=== PATIENT | female | born 1935 | race African-American/Black ===

== ENCOUNTER 2018-08-10 10:55 | Emergency (ER) | payer OTHER ==
[~2018-08-10] VITALS: Ht 154.9 cm; Wt 85.7 kg
[~2018-08-10 10:55] MED LIST: ASA81 MG PO; AZITHROMYCIN1 G/PKT PO; CARDURA8 MG PO; CEFTRIAXONE IM; COZAAR100 MG PO; GLUCOPHAGE XR500 MG PO; VERAPAMIL ER200 MG PO; [UNRECOGNIZED DRUG - OTHER]; [UNRECOGNIZED DRUG - OTHER] IM
[2018-08-10] MEDS ORDERED: GLIPIZIDE ER2.5 MG PO (11:13)
[2018-08-10] MEDS ORDERED: VERAPAMIL ER240 MG (11:13)
[2018-08-10] MEDS ORDERED: HYDROCHLOROTH12.5 M1 PO (11:13)
[2018-08-10] MEDS ORDERED: ATORVASTATIN CA10 MG PO (11:13)
[2018-08-10] MEDS ORDERED: AVAPRO300 MG PO (11:14)
[2018-08-10] MEDS ORDERED: ELIQUIS5 MG PO (11:14)
[2018-08-10] MEDS ORDERED: PERCOCET 5-3251 EACH PO (13:16)
== END 2018-08-10 14:03 | disposition home or self-care (01) ==
LOC: ER 10:55
DX: G89.29 Other chronic pain (principal); M54.5 Low back pain

== ENCOUNTER 2018-12-21 07:15 | Outpatient (CLI) | payer OTHER ==
[~2018-12-21 07:15] MED LIST changes: +ATORVASTATIN CA10 MG PO; +AVAPRO300 MG PO; +ELIQUIS5 MG PO; +GLIPIZIDE ER2.5 MG PO; +HYDROCHLOROTH12.5 M1 PO; +PERCOCET 5-3251 EACH PO; +VERAPAMIL ER240 MG
== END 2018-12-21 13:55 | disposition home or self-care (01) ==
LOC: LAB 07:15
DX: M47.26 Other spondylosis with radiculopathy, lumbar region (principal); Z01.818 Encounter for other preprocedural examination

== ENCOUNTER 2018-12-22 05:47 | Day surgery (SDC) | payer OTHER | END 2018-12-22 10:50 | disposition home or self-care (01) | LOC: CIR.AMB 05:47 | DX: M47.26 Other spondylosis with radiculopathy, lumbar region (principal) ==

== ENCOUNTER 2019-01-24 07:15 | Outpatient (CLI) | payer OTHER ==
[2019-01-30] MEDS ORDERED: PLAVIX75 MG PO (08:49)
[2019-01-30] MEDS ORDERED: CYMBALTA20 MG PO (08:49)
[2019-01-30] MEDS ORDERED: ASA81 MG PO (08:50)
[2019-01-30] MEDS ORDERED: COZAAR25 MG PO (08:50)
[2019-01-30] MEDS ORDERED: APRESOLINE 10MG10 MG PO (08:50)
[2019-01-30] MEDS ORDERED: LYRICA50 MG PO (08:50)
== END 2019-01-24 07:47 | disposition home or self-care (01) ==
LOC: LAB 07:15
DX: M48.061 Spinal stenosis, lumbar region without neurogenic claudication (principal); Z01.818 Encounter for other preprocedural examination; Z01.810 Encounter for preprocedural cardiovascular examination; I10 Essential (primary) hypertension; Z01.811 Encounter for preprocedural respiratory examination

== ENCOUNTER 2019-02-02 05:46 | Day surgery (SDC) | payer OTHER ==
[~2019-02-02 05:46] MED LIST changes: +APRESOLINE 10MG10 MG PO; +COZAAR25 MG PO; +CYMBALTA20 MG PO; +LYRICA50 MG PO; +PLAVIX75 MG PO
== END 2019-02-02 13:15 | disposition home or self-care (01) ==
LOC: CIR.AMB 05:46
DX: M48.061 Spinal stenosis, lumbar region without neurogenic claudication (principal)

== ENCOUNTER 2019-03-14 07:57 | Outpatient (CLI) | payer OTHER | END 2019-03-14 07:59 | disposition home or self-care (01) | LOC: TOM 07:57 | DX: K56.50 Intestinal adhesions [bands], unspecified as to partial versus complete obstruction (principal); K92.1 Melena ==

== ENCOUNTER 2024-07-24 06:59 | Emergency (ER) | payer OTHER ==
[~2024-07-24] VITALS: Ht 157.5 cm; Wt 83.5 kg
[2024-07-24] MEDS ORDERED: CILOSTAZOL50 MG PO (07:44)
[2024-07-24] MEDS ORDERED: HYDROCHLOROTH12.5 M2 PO (07:44)
[2024-07-24] MEDS ORDERED: MEMANTINE HCL E28 MG PO (07:45)
[2024-07-24] MEDS ORDERED: REMINYL4 MG PO (07:45)
[2024-07-24] MEDS ORDERED: DAFLONEX-XL 11300 MG PO (07:45)
[2024-07-24] MEDS ORDERED: KETOROLAC TROMETHAMINE 60 MG VIAL IM STA (08:40)
== END 2024-07-24 10:22 | disposition home or self-care (01) ==
LOC: ER 07:01
DX: M25.551 Pain in right hip (principal); I10 Essential (primary) hypertension; E11.9 Type 2 diabetes mellitus without complications; Z91.013 Allergy to seafood; Z91.041 Radiographic dye allergy status
CPT/HCPCS: 73020; 73502; 96372; 99283; J1885